=== PATIENT | female | born 1985 | race Caucasian/White ===

== ENCOUNTER → 2021-10-07 09:41 | Outpatient (BNVA) | payer MEDICAID, SELFPAY | PROVIDERS: Visit Provider Family Medicine | DX: J02.9 Acute pharyngitis, unspecified (principal) | CPT/HCPCS: 87071; 87880 ==

== ENCOUNTER → 2022-08-23 08:31 | Outpatient (BNVA) | payer MEDICAID, SELFPAY | PROVIDERS: PCP Family Medicine; Visit Provider Family Medicine | DX: Z34.90 Encounter for supervision of normal pregnancy, unspecified, unspecified trimester (principal) | CPT/HCPCS: 80307; 81000; 81025; 84144; 84443; 85025; 86592; 86762; 86803; 86850; 86900; 87086; 87340; 87491; 87591; 87624; 87806 ==

== ENCOUNTER 2022-09-01 14:17 | Outpatient (CLI) | payer MEDICAID, SELFPAY ==
--- NOTE | 2022-09-01 14:30 | US_ITS ---
WS: [id number] EARLY OBSTETRICAL ULTRASOUND (<14 WEEKS). HISTORY: Dating US COMPARISON: None available. Single intrauterine gestational sac is identified. Cardiac activity at 71 BPM. [place]-rump length hafsa ures 0.4 cm which corresponds to a gestation of 6w0d. Normal-appearing yolk sac and amnion demonstrat ed. No subchorionic hemorrhage. No free fluid. Normal size ovaries with no mass. RIGHT ovary contains a corpus luteal of . US/US OB <=14 wk fetus w transvag IMPRESSION: 1. Single intrauterine gestation of 6 weeks 0 days with an EDC of 04/27/2023. 2. Low level cardiac activity. Appropriate for the very early gestational age.
== END 2022-09-01 14:18 | disposition home or self-care (01) ==
PROVIDERS: PCP Family Medicine; Visit Provider Family Medicine
DX: Z34.91 Encounter for supervision of normal pregnancy, unspecified, first trimester (principal); Z36.87 Encounter for antenatal screening for uncertain dates; Z3A.01 Less than 8 weeks gestation of pregnancy
CPT/HCPCS: 76801; 76817

== ENCOUNTER 2022-09-15 14:28 | Day surgery (SDC) | payer MEDICAID, SELFPAY ==
[2022-09-15] VITALS (16 sets, daily range): BP systolic 92–120; BP diastolic 56–79; PULSE 56–103; RESP 14–20; TEMP 36.4–36.7; O2SAT 97–100; BMI 23.8
--- NOTE | 2022-09-15 15:06 | W.ED.FEMALGU ---
Documented by User: ROSEANNA Pettit 09/15/22 16:59 HPI - Female Genitourinary General: Chief complaint: Vaginal Bleeding Stated complaint: possible miscarrige Time Seen by Provider: 09/15/22 14:57 Source: patient Mode of arrival: ambulatory Limitations: no limitations History of Present Illness: Patient is a 37-year-old female approximately 8 weeks gestation here for complaints of vaginal bleeding/miscarriage. Patient states around 6 weeks she had an ultrasound performed (OB Dr. Robbins) which showed a gestational sac that measured small with abnormal cardiac activity. She presumed following this ultrasound she would miscarry. She states shortly after the ultrasound she did begin bleeding (bleeding started about 9 days ago) and states bleeding has continued and actually worsened over the past 1 to 2 days. She states today she is going through approximately a pad an hour. She states yesterday the pelvic cramping was unbearable. MD elicited complaint: vaginal bleeding, pelvic pain and possible miscarriage Pertinent past history: prior miscarriages Onset (ago): day(s) Severity: moderate Quality of pain: cramping Consistency: constant Vaginal discharge: none Vaginal bleeding: heavy, POC/tissue and # pads per hour (1) Exacerbating factors: none Relieving factors: none Associated symptoms: Reports no associated symptoms; Deny abdominal pain or headache(s) Treatment prior to arrival: none Sexual activity: Yes Patient : Yes Review of Systems Const: Denies: fever(s), chills, body aches, fatigue or malaise Card: Denies: chest pain Resp: Denies: dyspnea GI: Denies: abdominal pain : Reports: vaginal bleeding and pelvic pain; Denies: flank pain or dysuria Musc: Denies: back pain Neuro: Denies: headache(s) or dizziness [facility] ED PFSH: Surgical History Previous section x 3 Social History Smoking and tobacco status: former smoker Alcohol intake: never Substance/Drug Use: never Marital 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 Physical Exam Const: COMMON NORMALS: no acute distress, average body habitus, patient oriented x3, no limitations, healthy appearing, alert and well nourished GENERAL APPEARANCE: cooperative ORIENTATION/CONSCIOUSNESS: Yes awake, Yes oriented to person, Yes oriented to place and Yes oriented to time GI: COMMON NORMALS: Normal to inspection, nondistended, normoactive bowel sounds present, Soft to palpation, No hepatosplenomegaly present and no masses INSPECTION: Yes normal to inspection AUSCULTATION: Yes normoactive bowel sounds PALPATION: Yes Soft to palpation, Yes Tenderness to palpation present (GI) (lower abdomen/pelvis), No Guarding due to palpation present (GI), No Rigid due to palpation and Yes No hepatosplenomegaly present : COMMON NORMALS: Yes no CVA tenderness BLADDER/KIDNEY EXAM: Yes no CVA tenderness SPECULUM EXAM - VAGINA: Yes tissue present in vagina (removed) SPECULUM EXAM - CERVIX: Yes Cervical os open and Yes Tissue present in the cervical os (removed) OB/EXTERNAL & SPECULUM: tissue present in vagina (removed) and Cervical os open Back/Pelvis: COMMON NORMALS: no CVA tenderness Neuro: COMMON NORMALS: patient oriented x3 SENSORIUM/ORIENTATION: Yes alert, Yes oriented to person, Yes oriented to place and Yes oriented to time Course Consultations: Consultation #1: Dr. Robbins-recommended we continue to monitor patient-if bleeding has slowed then he will see patient tomorrow in office for re-evaluation; if she continues to bleed heavily then recommends contacting OB for evaluation for D&C Vital Signs: Vital signs: Vital Signs Temperature 98.0 F 09/15/22 22:12 Pulse Rate 65 09/15/22 22:12 Respiratory Rate 18 09/15/22 22:12 Blood Pressure 109/74 09/15/22 22:12 Pulse Oximetry 100 09/15/22 22:12 Oxygen Delivery Me thod Room Air 09/15/22 22:12 MDM - Female Lab Data 09/15/22 19:30 09/15/22 15:18 Radiology Impressions Ultrasound 09/15/22 16:31 IMPRESSION: 1. Negative for intrauterine , patient remains at risk for ectopic , close clinical correlation, serial beta HCG levels and follow-up ultrasound as clinically indicated advised. 2. Small amount of complex fluid in the uterine cavity, may reflect retained products of conception, close clinical correlation, serial beta HCG levels and follow-up ultrasound as clinically indicated advised. Abdomen/Pelvis CT 09/15/22 19:01 IMPRESSION: 1. Fluid in the uterine cavity with diffuse endometrial thickening, may be related to history of miscarriage. Negative for adnexal mass or abnormality to suggest the presence of an ectopic . 2. Mildly prominent fluid in the small bowel without dilation may reflect an enteritis. Laboratory Results WBC 9.2 10^3/uL (4.0-10.0) 09/15/22 19:30 RBC 3.58 10^6/uL (4.1-5.3) L 09/15/22 19: Hgb 11.1 g/dL (11.5-15.3) L 09/15/22 19: Hct 33.3 % (37.0-47.0) L 09/15/22: MCV 93.0 fl (81-99) 09/15/22: MCH 31.0 pg (28.0-34.0) 09/15/22: MCHC 33.3 g/dL (30.0-36.0) 09/15/22: RDW 11.4 % (12.1-15.1) L 09/15/22: Plt Count 221 10^3/cmm (130-400) 09/15/22: MPV 10.6 fL (7.4-10.4) H 09/15/22 19: Neut % (Auto) 79.9 % 09/15/22: Lymph % (Auto) 14.4 % 09/15/22: [place] % (Auto) 4.9 % 09/15/22: Eos % (Auto) 0.1 % 09/15/22: Baso % (Auto) 0.3 % 09/15/22: Neut # (Auto) 7.34 10^3/uL (1.8-7.7) 09/15/22 19: Lymph # (Auto) 1.3 10^3/uL (0.8-4.8) 09/15/22: [place] # (Auto) 0.5 10^3/uL (0.2-0.9) 09/15/22 19:30 Eos # (Auto) 0.0 10^3/uL (0.0-0.8) 09/15/22: Baso # (Auto) 0.0 10^3/uL (0.0-0.1) 09/15/22 19:30 Nucleated RBC % (auto) 0 % 09/15/22 19:30 Nucleated RBCs # 0.0 /100WBC 09/15/22 19:30 Sodium 135 mmol/L (136-145) L 09/15/22 15:18 Potassium 4.1 mmol/L (3.5-5.1) 09/15/22 15:18 Chloride 103 mmol/L (98-107) 09/15/22 15:18 Carbon Dioxide 20 mmol/L (22-29) L 09/15/22 15:18 Anion Gap 16.1 (5-19) 09/15/22 15:18 BUN 10 mg/dL (6-20) 09/15/22 15:18 Creatinine 0.5 mg/dL (0.5-0.9) 09/15/22 15:18 GFR Calculation 138.8 mL/min (90-130) H 09/15/22 15:18 Glucose 89 mg/dL (65-115) 09/15/22 15:18 Calculated Osmolality 279 mOsm/kg (285-295) L 09/15/22 15:18 Calcium 9.3 mg/dL (8.5-10.5) 09/15/22 15:18 Total Bilirubin 0.3 mg/dL (0.15-1.2) 09/15/22 15:18 AST 15 U/L (0-32) 09/15/22 15:18 ALT 8 U/L (0-33) 09/15/22 15:18 Alkaline Phosphatase 56 U/L (35-105) 09/15/22 15:18 Total Protein 7.7 g/dL (6.6-8.7) 09/15/22 15:18 Albumin 4.3 g/dL (3.5-5.2) 09/15/22 15:18 Globulin 3.4 g/dL (1.3-4.6) 09/15/22 15:18 Ser , Semi-Qnt 9392.00 mIU/mL 09/15/22 15:18 Blood Type O Positive 09/15/22 15:18 Rho(D) Type Positive 09/15/22 15:18 Discharge Plan Discharge Clinical Impression: Incomplete Condition: Stable Sign Out Sign Out Data: Patient Sign Out occurred on 09/15/22 at 17:45. Patient's care was discussed, and care was transferred from to Kg Holm. Coding Level of Care Code ED Carpet Measurer for Renetta Fwd Documented by User: LEROY Cordova 09/15/22 22:27 HPI - Female Genitourinary General: Chief complaint: Vaginal Bleeding Stated complaint: possible miscarrige Time Seen by Provider: 09/15/22 14:57 PFSH ED PFSH: Surgical History Previous section x 3 Social History Smoking and tobacco status: former smoker Alcohol intake: never Substance/Drug Use: never Marital 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 Course ED course: 1735, patient had some increased passage of clots after ultrasound and was concerned. Contacted Dr. Mann he recommended tranxemic acid, monitor and follow-up in the office for repeat hCG levels until 0. Since there is no product left in the uterus he did not recommend D&C at this time. 1835, I attempted evaluation of cervical os patient is very retroverted and I was unable to get good visualization, I did remove 2 large clots. Patient's blood pressure dropped to 95 systolic I discussed this with Dr. Palafox who recommended we talk with Dr. Mann again. I contacted Dr. Mann and instructed him on the new exam and reviewed the ultrasound again with him. I requested him to come over and evaluate the patient he agreed with plan. 2010, Dr. Mann reevaluated patient after CT scan and informed me that he was going to take her for a D&C due to persistent bleeding. Vital Signs: Vital signs: Vital Signs Temperature 98.0 F 09/15/22 22:12 Pulse Rate 65 09/15/22 22:12 Respiratory Rate 18 09/15/22 22:12 Blood Pressure 109/74 09/15/22 22:12 Pulse Oximetry 100 09/15/22 22:12 Oxygen Delivery Me thod Room Air 09/15/22 22:12 MDM - Female Medical Decision Making Patient came in today due to increasing bleeding greater than 1 pad an hour starting about 11:00. I received this patient from Puja Haynes. Pelvic exam by Puja Haynes reported to me was clots red blood was noted in the vaginal vault but nothing was noted in the cervical os. After ultrasound patient had an increase in clots and bleeding. Patient was given 1 g of TXA IV for bleeding. Dr. Mann was consulted and at the time recommended home with oral TXA and follow-up in the office. Patient had worsening pain and became hypotensive with a blood pressure of 95 systolic. Patient was given some ketorolac and fentanyl which improved her pain. Dr. Mann was notified of abnormality and agreed to come over to evaluate patient further. Differential diagnoses included incomplete , missed , abnormal uterine bleeding. Ultrasound noted no IUP and complex fluid in the uterus suggesting either bleeding or retained product of conception. Original CBC noted hemoglobin 12.4, CMP was unremarkable. Patient's blood type was O+. Second CBC noted a hemoglobin 11.1. Dr. Mann ordered a CT scan they reevaluated patient and decided to take patient to surgery for D&C due to patient's continued bleeding. Lab Data 09/15/22 19:30 09/15/22 15:18 Radiology Impressions Ultrasound 09/15/22 16:31 IMPRESSION: 1. Negative for intrauterine , patient remains at risk for ectopic , close clinical correlation, serial beta HCG levels and follow-up ultrasound as clinically indicated advised. 2. Small amount of complex fluid in the uterine cavity, may reflect retained products of conception, close clinical correlation, serial beta HCG levels and follow-up ultrasound as clinically indicated advised. Abdomen/Pelvis CT 09/15/22 19:01 IMPRESSION: 1. Fluid in the uterine cavity with diffuse endometrial thickening, may be related to history of miscarriage. Negative for adnexal mass or abnormality to suggest the presence of an ectopic . 2. Mildly prominent fluid in the small bowel without dilation may reflect an enteritis. Laboratory Results WBC 9.2 10^3/uL (4.0-10.0) 09/15/22 19:30 RBC 3.58 10^6/uL (4.1-5.3) L 09/15/22 19: Hgb 11.1 g/dL (11.5-15.3) L 09/15/22 19: Hct 33.3 % (37.0-47.0) L 09/15/22 19: MCV 93.0 fl (81-99) 09/15/22 19: MCH 31.0 pg (28.0-34.0) 09/15/22: MCHC 33.3 g/dL (30.0-36.0) 09/15/22 19: RDW 11.4 % (12.1-15.1) L 09/15/22: Plt Count 221 10^3/cmm (130-400) 09/15/22: MPV 10.6 fL (7.4-10.4) H 09/15/22 19: Neut % (Auto) 79.9 % 09/15/22 19: Lymph % (Auto) 14.4 % 09/15/22 19: [place] % (Auto) 4.9 % 09/15/22 19: Eos % (Auto) 0.1 % 09/15/22: Baso % (Auto) 0.3 % 09/15/22: Neut # (Auto) 7.34 10^3/uL (1.8-7.7) 09/15/22: Lymph # (Auto) 1.3 10^3/uL (0.8-4.8) 09/15/22: [place] # (Auto) 0.5 10^3/uL (0.2-0.9) 09/15/22 19: Eos # (Auto) 0.0 10^3/uL (0.0-0.8) 09/15/22: Baso # (Auto) 0.0 10^3/uL (0.0-0.1) 09/15/22: Nucleated RBC % (auto) 0 % 09/15/22: Nucleated RBCs # 0.0 /100WBC 09/15/22 19: Sodium 135 mmol/L (136-145) L 09/15/22 15:18 Potassium 4.1 mmol/L (3.5-5.1) 09/15/22 15:18 Chloride 103 mmol/L (98-107) 09/15/22 15:18 Carbon Dioxide 20 mmol/L (22-29) L 09/15/22 15:18 Anion Gap 16.1 (5-19) 09/15/22 15:18 BUN 10 mg/dL (6-20) 09/15/22 15:18 Creatinine 0.5 mg/dL (0.5-0.9) 09/15/22 15:18 GFR Calculation 138.8 mL/min (90-130) H 09/15/22 15:18 Glucose 89 mg/dL (65-115) 09/15/22 15:18 Calculated Osmolality 279 mOsm/kg (285-295) L 09/15/22 15:18 Calcium 9.3 mg/dL (8.5-10.5) 09/15/22 15:18 Total Bilirubin 0.3 mg/dL (0.15-1.2) 09/15/22 15:18 AST 15 U/L (0-32) 09/15/22 15:18 ALT 8 U/L (0-33) 09/15/22 15:18 Alkaline Phosphatase 56 U/L (35-105) 09/15/22 15:18 Total Protein 7.7 g/dL (6.6-8.7) 09/15/22 15:18 Albumin 4.3 g/dL (3.5-5.2) 09/15/22 15:18 Globulin 3.4 g/dL (1.3-4.6) 09/15/22 15:18 Ser , Semi-Qnt 9392.00 mIU/mL 09/15/22 15:18 Blood Type O Positive 09/15/22 15:18 Rho(D) Type Positive 09/15/22 15:18 Discharge Plan Discharge Clinical Impression: Incomplete Condition: Stable Sign Out Sign Out Data: Patient Sign Out occurred on 09/15/22 at 17:45. Patient's care was discussed, and care was transferred from to Kg Holm. Coding Level of Care Code ED Carpet Measurer for Renetta Falcon
[2022-09-15 15:40] LABS: Basophils % 0.4 %; Eosinophils % 0.4 %; Hematocrit 37.6 % (37.0-47.0); Hemoglobin 12.4 g/dL (11.5-15.3); Lymphocytes # 1.3 10^3/uL (0.8-4.8); Lymphocytes % 15.7 %; Mean Corpuscular Hemoglobin 31.4 pg (28.0-34.0); Mean Corpuscular Volume 95.2 fl (81-99); Mean Platelet Volume 10.8 fL (7.4-10.4); Monocytes # 0.4 10^3/uL (0.2-0.9); Monocytes % 5.4 %; Neutrophils # 6.33 10^3/uL (1.8-7.7); Neutrophils % 77.9 %; Nucleated Red Blood Cells % 0 %; Platelet Count 213 10^3/cmm (130-400); Red Blood Count 3.95 10^6/uL (4.1-5.3); Red Cell Distribution Width 11.3 % (12.1-15.1); White Blood Count 8.1 10^3/uL (4.0-10.0)
[2022-09-15 15:55] LABS: Alanine Aminotransferase 8 U/L (0-33); Albumin Level 4.3 g/dL (3.5-5.2); Alkaline Phosphatase 56 U/L (35-105); Aspartate Amino Transferase 15 U/L (0-32); Blood Urea Nitrogen 10 mg/dL (6-20); Calcium 9.3 mg/dL (8.5-10.5); Carbon Dioxide 20 mmol/L (22-29); Chloride 103 mmol/L (98-107); Globulin 3.4 g/dL (1.3-4.6); Glomerular Filtration Rate 138.8 mL/min (90-130); Glucose 89 mg/dL (65-115); Osmolality Calculated 279 mOsm/kg (285-295); Sodium 135 mmol/L (136-145); Total Bilirubin 0.3 mg/dL (0.15-1.2); Total Protein 7.7 g/dL (6.6-8.7)
[2022-09-15 15:57] LABS: Anion Gap 16.1 (5-19); Potassium 4.1 mmol/L (3.5-5.1)
--- NOTE | 2022-09-15 16:31 | USR_ITS ---
PROCEDURE INFORMATION: Exam: US First Trimester, Transabdominal and US , Transvaginal Exam date and time: 09/15/2022 4:46 PM Age: 37 years old Clinical indication: Lmp or gestational age (in weeks): 0; Antepartum complications; Bleeding; Additional info: Bleeding/miscarriage TECHNIQUE: Imaging protocol: Real-time transabdominal obstetrical ultrasound of the maternal pelvis and a first trimester , less than 14 weeks 0 days, with image documentation. Transvaginal imaging was used for better evaluation of the fetus, adnexa, and/or cervix. COMPARISON: US OB <=14 wk fetus w transvag 09/01/2022 2:49 PM FINDINGS: Gestation: Negative for intrauterine , patient remains at risk for ectopic , close clinical correlation, serial beta HCG levels and follow-up ultrasound as clinically indicated advised. MATERNAL: Uterus: Unremarkable. Cervix: Unremarkable. Right ovary/adnexa: Unremarkable ovary. Left ovary/adnexa: Unremarkable ovary. Intraperitoneal space: No intraperitoneal free fluid. Other findings: Small amount of complex fluid in the uterine cavity, may reflect retained products of conception, close clinical correlation, serial beta HCG levels and follow-up ultrasound as clinically indicated advised. US/US OB <= 14 weeks fetus [id number] IMPRESSION: 1. Negative for intrauterine , patient remains at risk for ectopic , close clinical correlation, serial beta HCG levels and follow-up ultrasound as clinically indicated advised. 2. Small amount of complex fluid in the uterine cavity, may reflect retained products of conception, close clinical correlation, serial beta HCG levels and follow-up ultrasound as clinically indicated advised.
[2022-09-15] MEDS: sodium chloride 0.9% 1,000 ML 999 ML IV (17:55)
[2022-09-15] MEDS: ketorolac 30 mg/mL INJ 15 MG IVP (18:00)
[2022-09-15] MEDS: fentaNYL 50 mcg/mL INJ 2mL IVP (18:40)
--- NOTE | 2022-09-15 19:01 | CTR_ITS ---
PROCEDURE INFORMATION: Exam: CT Abdomen And Pelvis With Contrast Exam date and time: 09/15/2022 7:12 PM Age: 37 years old Clinical indication: Abdominal pain; Localized; Lower; Prior surgery; Surgery date: 6+ months; Surgery type: C section; Additional info: Miscarraige, pelvic pain, R/O ectopic TECHNIQUE: Imaging protocol: Computed tomography of the abdomen and pelvis with contrast. Radiation optimization: All CT scans at this facility use at least one of these dose optimization techniques: automated exposure control; mA and/or kV adjustment per patient size (includes targeted exams where dose is matched to clinical indication); or iterative reconstruction. Contrast material: OMNI 350; Contrast volume: 100 ml; Contrast route: INTRAVENOUS (IV); REPORTING DATA: Count of CT and Cardiac NM exams in prior 12 months: This patient has received 0 known CTs and 0 known cardiac nuclear medicine studies in the 12 months prior to the current study. COMPARISON: US OB <= 14 weeks fetus [id number] 09/15/2022 4:46 PM RADIATION DOSE METRICS: Total DLP (mGy-cm): 577 FINDINGS: Liver: Normal. No mass. Gallbladder and bile ducts: Normal. No calcified stones. No ductal dilation. Pancreas: Normal. No ductal dilation. Spleen: Normal. No splenomegaly. Adrenal glands: Normal. No mass. Kidneys and ureters: Normal. No hydronephrosis. Stomach and bowel: Mildly prominent fluid in the small bowel without dilation may reflect an enteritis. Appendix: No evidence of appendicitis. Intraperitoneal space: Unremarkable. No free air. No significant fluid collection. Vasculature: Unremarkable. No abdominal aortic aneurysm. Lymph nodes: Unremarkable. No enlarged lymph nodes. Urinary bladder: Unremarkable as visualized. Reproductive: Fluid in the uterine cavity with diffuse endometrial thickening, may be related to history of miscarriage. Bones/joints: Unremarkable. No acute fracture. Soft tissues: Unremarkable. CT/CT abdomen pelvis w con* [id number] IMPRESSION: 1. Fluid in the uterine cavity with diffuse endometrial thickening, may be related to history of miscarriage. Negative for adnexal mass or abnormality to suggest the presence of an ectopic . 2. Mildly prominent fluid in the small bowel without dilation may reflect an enteritis.
[2022-09-15] MEDS: iohexol 350 mg/mL 500 mL Btl (per mL) IV (19:19)
[2022-09-15] MEDS: fentaNYL 50 mcg/mL INJ 2mL 25 MCG IVP (19:50)
[2022-09-15 19:52] LABS: Basophils % 0.3 %; Eosinophils % 0.1 %; Hematocrit 33.3 % (37.0-47.0); Hemoglobin 11.1 g/dL (11.5-15.3); Lymphocytes # 1.3 10^3/uL (0.8-4.8); Lymphocytes % 14.4 %; Mean Corpuscular HGB Conc 33.3 g/dL (30.0-36.0); Mean Platelet Volume 10.6 fL (7.4-10.4); Monocytes # 0.5 10^3/uL (0.2-0.9); Monocytes % 4.9 %; Neutrophils # 7.34 10^3/uL (1.8-7.7); Neutrophils % 79.9 %; Nucleated Red Blood Cells % 0 %; Platelet Count 221 10^3/cmm (130-400); Red Blood Count 3.58 10^6/uL (4.1-5.3); Red Cell Distribution Width 11.4 % (12.1-15.1); White Blood Count 9.2 10^3/uL (4.0-10.0)
--- NOTE | 2022-09-15 20:04 | P.CONIM_ITS ---
Providers/Reason for Consult Consulting Physican/Specialty*: ER Reason for Consult*: Incomplete Primary Care Provider: Miky Robbins MD WOOLING MACHINE OPERATOR Consult HPI History of Present Illness Megan Burgos is a 37 year old female with EGA at 8 weeks with pelvic pain, vaginal bleeding, with no IUP. Present Details : 5 Para: 3 Review of Systems General: Reports: 10 or more systems reviewed and unremarkable except in HPI and below Const: Denies: fever(s), chills, body aches, fatigue or malaise Card: Denies: chest pain Resp: Denies: dyspnea GI: Denies: abdominal pain : Reports: vaginal bleeding and pelvic pain; Denies: flank pain or dysuria Musc: Denies: back pain Neuro: Denies: headache(s) or dizziness Medications/Allergies Home Medications Medication Instructions Recorded Confirmed Last Taken Type prenat.vits,florentin,zze-[id number] 1 tab PO DAILY 08/23/22 08/23/22 Unknown History tranexamic acid 650 mg tablet 650 mg PO TID #15 tabs 09/15/22 Unknown Rx (Lysteda) Allergies Allergy/AdvReac Type Severity Reaction Status Date / Time No Known Allergies Allergy Unverified 10/07/21 09:13 PFSH WOOLING MACHINE OPERATOR PFSH: Surgical History Previous section x 3 Social History Smoking and tobacco status: former smoker Alcohol intake: never Substance/Drug Use: never Marital 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 Vitals/I&O/Wt Last Vital Signs Temp 97.6 F 09/15/22 14:35 Pulse 56 L 09/15/22 19:44 Resp 20 H 09/15/22 19:50 BP 117/76 09/15/22 19:44 Pulse Ox 99 09/15/22 19:50 O2 Del Method Room Air 09/15/22 19:44 09/15/22 09/15/22 09/15/22 06:59 14:59 22:59 Intake Total 110 / 110 Balance 110 / 110 Weight last 48 hrs Weight 75.296 kg Physical Exam Const: COMMON NORMALS: no acute distress, patient oriented x3, alert and well nourished GENERAL APPEARANCE: well kempt HENMT: COMMON NORMALS: normocephalic and atraumatic HEAD & SCALP: normocephalic and atraumatic Neck/C-Spine: COMMON NORMALS: full ROM and Thyroid normal THYROID: Thyroid normal Lymph: LYMPHATIC: no lymphadenopathy noted Chest: CHEST: Yes Symmetrical chest wall rise Resp: COMMON NORMALS: normal respiratory effort Cardio: COMMON NORMALS: regular rate and regular rhythm RATE: regular rate RHYTHM: regular rhythm GI: COMMON NORMALS: Soft to palpation INSPECTION: Yes normal to inspection PALPATION: Yes Soft to palpation, No Tenderness to palpation present (GI), No Guarding due to palpation present (GI) and No Rebound tenderness present PERCUSSION: normal to percussion : COMMON NORMALS: No no CVA tenderness and Yes normal bimanual exam BLADDER/KIDNEY EXAM: No no CVA tenderness EXTERNAL FEMALE EXAM: Yes normal appearance of the urethra SPECULUM EXAM - VAGINA: No laceration, No lesion, Yes vaginal bleeding Amount: large/heavy and with clots, No tenderness and No Vaginal discharge present SPECULUM EXAM - CERVIX: Yes Cervical os open, Yes Cervical bleeding and Yes Cervical tenderness present BIMANUAL EXAM - VAGINA & UTERUS: Yes normal bimanual exam, Yes normal palpation, Yes normal palpation, No cervical motion tenderness, Yes Cervical tenderness present, Yes uterine shape normal, Yes Uterine tenderness bilaterally and Yes enlarged BIMANUAL EXAM - ADNEXA, OTHER: Yes normal adnexae, No tender and No Adnexal mass present OB/EXTERNAL & SPECULUM: Cervical os open and vaginal bleeding Back/Pelvis: COMMON NORMALS: negative for no CVA tenderness LUMBAR SPINE/LOWER BACK: Yes normal to inspection and No pain with ROM PELVIS: Yes no pain with anterior-posterior compression, Yes no pain with lateral compression and No tenderness over symphysis pubis Extremity: GENERAL: Yes normal exam except as noted, No calf tenderness and No cyanosis Neuro: COMMON NORMALS: patient oriented x3 SENSORIUM/ORIENTATION: Yes alert SPEECH: speech normal Psych: COMMON NORMALS: mental status grossly normal, Normal thought process present, cooperative, normal affect and speech normal APPEARANCE: Yes grossly normal and Yes well kempt ATTITUDE: Yes calm ACTIVITY/MOTOR BEHAVIOR: Yes appropriate eye contact SPEECH: Yes normal speech MOOD & AFFECT: Yes euthymic mood THOUGHT PROCESS: Normal thought process present ATTENTION/CONCENTRATION: Yes attention grossly intact Skin: COMMON NORMALS: no rashes or lesions noted GENERAL SKIN EXAM: no rashes or lesions noted Data 09/15/22 19:30 09/15/22 15:18 A&P Assessment and plan (1) Incomplete : Mrs. Guy 37 y/o female with approximate LMP 07/07/22, who was previously diagnose with an intrauterine at 8 weeks today base on a transvaginal US performed on 09/01/2022 with an estimated KASEY of 04/27/2023. Came to ER referring vaginal bleeding since Tuesday associated with passing some tissue, complaning of vaginal bleeding and pelvic pain worsen today. A trasnvaginal US show small amount of complex fluid in lower uterus, adnexas wNL, but ectopic could not be ruled out. A ct scan was ordered and confirm no ectopic . The patient and her significant other where inform of findings. Upon examination poor visability of the cervix due to bleeding and a suction dialtion and curettage recommended. She was counseled regarding procedure, all treatment modalities, risk and complications. (2) First trimester bleeding: Coding Level of Care Code Acute Code for Chg Fwd Diagnoses Incomplete O03.4 First trimester bleeding O20.9
[2022-09-15] MEDS: sodium chloride 0.9% 1,000 ML 30 ML IV (22:39)
--- NOTE | 2022-09-15 22:49 | ANES.PREANE2 ---
Pre-Anesthetic Assessment Height/Weight: Height 1.78 m Weight 75.296 kg Temp Pulse Resp BP Pulse Ox O2 Del Method 98.0 F 65 18 109/74 100 Room Air 09/15/22 22:12 09/15/22 22:12 09/15/22 22:12 09/15/22 22:12 09/15/22 22:12 09/15/22 22:12 Preop Diagnosis: spontanous AB Operation Date: 09/15/22 22:00 Proposed Procedures p Dilation And Curettage w/ Suction(Not Applicable) - King Mann MD Familial anesthetic complications: none Last intake: meal 1400 fluids 1900 Social No alcohol and No tobacco Exam alert, oriented x 3, clear to auscultation bilaterally and regular rate & rhythm Airway Submandibular: within normal limits Cervical ROM: within normal limits Mallampati: Class I Dentition: full Pulmonary None reported CV/HEM Anemia (missed AB) None reported Hepatic None reported GI None reported Metabolic None reported Musc/skel None reported Neuropsych None reported Anesthetic Plan ASA status: 1E Medications/Allergies Home Medications Medication Instructions Recorded Confirmed Last Taken Type prenat.vits,florentin,aha-fvqg-ozubu 1 tab PO DAILY 08/23/22 08/23/22 Unknown History tranexamic acid 650 mg tablet 650 mg PO TID #15 tabs 09/15/22 Unknown Rx (Lysteda) Allergies Allergy/AdvReac Type Severity Reaction Status Date / Time No Known Allergies Allergy Unverified 10/07/21 09:13 Current Medications Generic Name Dose Route Start Last Admin Trade Name Freq PRN Reason Stop Dose Admin Sodium Chloride 1,000 mls @ 30 mls/hr 09/15/22 18:45 09/15/22 22:39 Sodium Chloride 0.9% IV 30 mls/hr .Q24H ADI Administration PFSH Anesthesia Surgical History Previous section x 3 Social History Smoking and tobacco status: former smoker Alcohol intake: never Substance/Drug Use: never Marital 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 Female Reproductive History : 5 Data Anesthesia 09/15/22 19:30 09/15/22 15:18 Short CBC 09/15/22 09/15/22 Range/Units 15:18 19:30 WBC 8.1 9.2 (4.0-10.0) 10^3/uL Hgb 12.4 11.1 L (11.5-15.3) g/dL Hct 37.6 33.3 L (37.0-47.0) % MCV 95.2 93.0 (81-99) fl Plt Count 213 221 (130-400) 10^3/cmm Neut % (Auto) 77.9 79.9 % Neut # (Auto) 6.33 7.34 (1.8-7.7) 10^3/uL [facility] 09/15/22 15:18 Sodium 135 L Potassium 4.1 Chloride 103 Carbon Dioxide 20 L BUN 10 Creatinine 0.5 Glucose 89 Calcium 9.3 Liver Function 09/15/22 Range/Units 15:18 Total Bilirubin 0.3 (0.15-1.2) mg/dL AST 15 (0-32) U/L ALT 8 (0-33) U/L Alkaline Phosphatase 56 (35-105) U/L Albumin 4.3 (3.5-5.2) g/dL Blood Bank 09/15/22 15:18 Blood Type O Positive Rho(D) Type Positive Cardiac Studies: No Data to Display
[2022-09-15] MEDS: ceFAZolin 2,000 MG in sodium chloride 0.9% (plus) 50 ML 100 MG IV (23:04)
[2022-09-15] MEDS: lidocaine-epi 2% 20 mL INJ 12 ML INJECTION (23:24)
--- NOTE | 2022-09-15 23:28 | PM.OP ---
Operative Report Date of procedure: September 15, 2022 Pre-op diagnosis: Incomplete AB Post-op diagnosis: Same as above Procedure done: Suction and curettage Specimens removed/disposition: Products of conception Surgeon: King Mann MD Estimated blood loss (mL): 100 IV fluids (mL): 1,000 Complications: None Findings: Open cervix with products of conception Procedure: After informed consent, the patient was taken to the Operating Room where general anesthesia was administered. The patient was examined under anesthesia and found to have a normal uterus with normal adnexa. She was placed in the dorsal lithotomy position and prepped and draped in sterile fashion. A sterile open side speculum was placed in the patient?s vagina. A single-tooth tenaculum was then applied to the cervix. 2% lidocaine with epinephrine was infiltrated at the uterosacral ligaments. Product of conception noted at the open cervix os and it was emptied with ring forceps. Then the uterus was then gently sounded to 10 cm and a suction curette was advanced gently to the uterine fundus and the remainder of the product of conception was emptied. A sharp curettage was then performed until a gritty texture was noted. There was minimal bleeding noted and the tenaculum was removed with good hemostasis noted. The patient tolerated the procedure well. The patient was taken to the recovery area in stable condition. This documentation was created by [employer] fraud prevention analyst software (known for inherent fraud prevention analyst error). Every effort was made to assure accuracy of fraud prevention analyst. But this EMR does not have a spelling check with medical dictionary.
[2022-09-16 00:04] VITALS: BP 116/77; PULSE 98; RESP 17; TEMP 36.2; O2SAT 100
[2022-09-16 00:09] VITALS: BP 112/73; PULSE 89; RESP 18; TEMP 36.4; O2SAT 98
[2022-09-16 00:24] VITALS: BP 104/78; PULSE 100; RESP 18; O2SAT 98
[2022-09-16 00:29] VITALS: BP 108/64; PULSE 82; RESP 18; TEMP 36.2; O2SAT 100
== END 2022-09-16 00:31 | disposition home or self-care (01) ==
LOC: ER 18:05 → OR 20:28
PROVIDERS: Physician Assistant; Emergency Provider Nurse Practitioner Family; PCP Family Medicine; Visit Provider Obstetrics & Gynecology
PROC: (CPT 59812; principal; 2022-09-15 22:00)
DX: O03.4 Incomplete spontaneous abortion without complication (principal); Z87.891 Personal history of nicotine dependence
CPT/HCPCS: 59812; 36415; 74177; 76801; 80053; 84702; 85025; 86900; 88305; 99285; E0352; J0330; J0690; J1100; J1885; J2250; J2405; J2704; J3010; J7030; Q9967

== ENCOUNTER → 2022-11-12 09:21 | Outpatient (BNVA) | payer MEDICAID, SELFPAY | PROVIDERS: PCP Family Medicine; Visit Provider Clinical Nurse Specialist Adult Health | DX: R10.9 Unspecified abdominal pain (principal); R10.33 Periumbilical pain | CPT/HCPCS: 86003; 86008 ==

== ENCOUNTER → 2023-03-09 12:00 | Outpatient (BNVA) | payer MEDICAID, SELFPAY | PROVIDERS: PCP Family Medicine; Visit Provider Family Medicine | DX: Z34.80 Encounter for supervision of other normal pregnancy, unspecified trimester (principal) | CPT/HCPCS: 80307; 81000; 81025; 84144; 84443; 84702; 85025; 86592; 86762; 86803; 86850; 86900; 87086; 87340; 87491; 87591; 87806 ==

== ENCOUNTER 2023-03-17 06:56 | Outpatient (CLI) | payer MEDICAID, SELFPAY ==
--- NOTE | 2023-03-17 | US_ITS ---
WS: [id number] EARLY OBSTETRICAL ULTRASOUND (<14 WEEKS). HISTORY: Dating US - in next 1-2 weeks if possible COMPARISON: None available. Twin intrauterine gestational sacs are identified. Gestational sacs are in good position. Thick echog enic chorion completely surrounding each gestational sac. Twin peak sign is evident. Twin A: This is a gestational sac to the RIGHT and just slightly more inferior. Normal yolk sac and f etal pole. Heart rate 167 bpm. [place]-rump length of 1.6 cm corresponds to a gestation of 8 weeks and 0 days. EDC of 10/27/2023. Twin B: Gestational sac is to the LEFT of midline. No yolk sac and pole. Cardiac activity 153 b pm. [place]-rump length of 1.4 cm corresponds to a gestation of 7 weeks and 5 days. EDC of 10/29/2023. Cervix is closed. No free fluid. There is a tiny subchorionic hemorrhage adjacent to the inferior ges tational sac of twin A. Both ovaries are identified and normal. IMPRESSION: 1. Twin gestation, dichorionic diamniotic. 2. Twin A: 8 weeks 0 days with an EDC of 10/26/2013. 3. Twin B: 7 weeks 5 days with an EDC of 10/29/2023. 4. Normal cardiac activity within each gestation.
--- NOTE | 2023-03-17 07:15 | US_ITS ---
WS: [id number] EARLY OBSTETRICAL ULTRASOUND (<14 WEEKS). HISTORY: Dating US - in next 1-2 weeks if possible COMPARISON: None available. Twin intrauterine gestational sacs are identified. Gestational sacs are in good position. Thick echog enic chorion completely surrounding each gestational sac. Twin peak sign is evident. Twin A: This is a gestational sac to the RIGHT and just slightly more inferior. Normal yolk sac and f etal pole. Heart rate 167 bpm. [place]-rump length of 1.6 cm corresponds to a gestation of 8 weeks and 0 days. EDC of 10/27/2023. Twin B: Gestational sac is to the LEFT of midline. No yolk sac and pole. Cardiac activity 153 b pm. [place]-rump length of 1.4 cm corresponds to a gestation of 7 weeks and 5 days. EDC of 10/29/2023. Cervix is closed. No free fluid. There is a tiny subchorionic hemorrhage adjacent to the inferior ges tational sac of twin A. Both ovaries are identified and normal. IMPRESSION: 1. Twin gestation, dichorionic diamniotic. 2. Twin A: 8 weeks 0 days with an EDC of 10/26/2013. 3. Twin B: 7 weeks 5 days with an EDC of 10/29/2023. 4. Normal cardiac activity within each gestation.
== END 2023-03-17 06:57 | disposition home or self-care (01) ==
LOC: RAD 06:56
PROVIDERS: PCP Family Medicine; Visit Provider Family Medicine
DX: Z36.87 Encounter for antenatal screening for uncertain dates (principal); O30.041 Twin pregnancy, dichorionic/diamniotic, first trimester; Z3A.08 8 weeks gestation of pregnancy; Z3A.01 Less than 8 weeks gestation of pregnancy
CPT/HCPCS: 76801; 76802; 76817

== ENCOUNTER 2023-09-26 13:01 | Outpatient (CLI) | payer MEDICAID, SELFPAY ==
[2023-09-26 13:17] VITALS: BP 115/75; PULSE 104
[2023-09-26 13:20] VITALS: BMI 28.1
[2023-09-26 13:40] VITALS: RESP 16; TEMP 36.6; TEMP 36.7
== END 2023-09-26 13:40 ==
LOC: OPOB 13:07 → OBGYN 13:07
PROVIDERS: PCP Family Medicine; Visit Provider Family Medicine
DX: O30.099 Twin pregnancy, unable to determine number of placenta and number of amniotic sacs, unspecified trimester (principal); Z3A.00 Weeks of gestation of pregnancy not specified
CPT/HCPCS: 59025; 99211

== ENCOUNTER 2023-09-29 09:11 | Outpatient (CLI) | payer MEDICAID, SELFPAY ==
[2023-09-29 09:17] VITALS: BP 113/72; PULSE 83
== END 2023-09-29 10:00 | disposition home or self-care (01) ==
LOC: OPOB 09:12 → OBGYN 09:14
PROVIDERS: PCP Family Medicine; Visit Provider Family Medicine
DX: O30.099 Twin pregnancy, unable to determine number of placenta and number of amniotic sacs, unspecified trimester (principal); Z3A.00 Weeks of gestation of pregnancy not specified
CPT/HCPCS: 59025; 83986; 99211

== ENCOUNTER 2023-10-06 09:46 | Outpatient (CLI) | payer MEDICAID, SELFPAY ==
[2023-10-06 09:56] VITALS: BP 118/76; PULSE 82
[2023-10-06 09:59] VITALS: RESP 16
[2023-10-06 10:26] VITALS: BP 116/74; PULSE 85
[2023-10-06 10:30] VITALS: BP 116/74; PULSE 85
== END 2023-10-06 10:30 | disposition home or self-care (01) ==
LOC: OPOB 09:46 → OBGYN 09:47
PROVIDERS: PCP Family Medicine; Visit Provider Family Medicine
DX: O30.099 Twin pregnancy, unable to determine number of placenta and number of amniotic sacs, unspecified trimester (principal); Z3A.00 Weeks of gestation of pregnancy not specified
CPT/HCPCS: 59025; 99211

== ENCOUNTER 2023-10-07 19:51 | Outpatient (CLI) | payer MEDICAID, SELFPAY ==
[2023-10-07] VITALS (8 sets, daily range): BP systolic 111–127; BP diastolic 77–82; PULSE 78–100; RESP 16; TEMP 36.7; BMI 28.3
== END 2023-10-07 22:18 | disposition home or self-care (01) ==
LOC: OPOB 19:52 → OBGYN 19:56
PROVIDERS: PCP Family Medicine; Visit Provider Family Medicine
DX: O26.899 Other specified pregnancy related conditions, unspecified trimester (principal); Z3A.00 Weeks of gestation of pregnancy not specified; R10.9 Unspecified abdominal pain
CPT/HCPCS: 59025; 99211

== ENCOUNTER 2023-10-12 05:35 | Inpatient (IN) | payer MEDICAID, SELFPAY ==
[2023-10-12] VITALS (35 sets, daily range): BP systolic 100–127; BP diastolic 7–84; PULSE 60–92; RESP 16–17; TEMP 36.4–36.8; O2SAT 98–100; BMI 28.1
--- NOTE | 2023-10-12 05:26 | PM.OBGYHP ---
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 The patient has had a remarkably unremarkable twin . There have been no concerns. All the twins have had concordant growth throughout the . She has had 3 previous sections, and so we knew that she would have a repeat section. We have discussed the risks of including the risk of bleeding, infection, and damage to intra-abdominal organs. We have also discussed her history of previous C-sections and they understand that due to scar tissue that her risks are increased. She and her have no further questions and wished to proceed. Medications/Allergies Home Medications Medication Instructions Recorded Confirmed Last Taken Type prenat.vits,florentin,ger-fwqg-zjsti 1 tab PO DAILY 08/23/22 10/07/23 Unknown History Allergies Allergy/AdvReac Type Severity Reaction Status Date / Time No Known Allergies Allergy Unverified 10/01/22 13:05 PFSH OPERATING ENGINEER PFS: Surgical History (Updated 10/12/23 @ 05:30 by Dexter Smith MD) H/O dilation and curettage -2009 -09/15/2022 Previous section x 3 Family History Denies family history of Diabetes Heart disease Hyperlipidemia Hypertension Thyroid disease Stroke Social History Smoking and tobacco/nicotine status: never used tobacco/nicotine Alcohol intake: never Substance/Drug Use: never Current occupation: Stay at home mom History History History 6 Term 3 0 Miscarriages/Ectopic 2 Living Children 3 Past Pregnancies Del. Date GA/Weeks Outcome Route Wt Inf Gender Labor Lgth Comp. Anesthesia Location 04/11/09 9 spontaneous 03/18/11 41 live - full term 10 lb 15 oz Male [facility] - Dr Ortega 07/13/17 39 live - full term 6 lb Female [facility] 10/20/18 39 live - full term 7 lb [address] Driscoll [place] [facility] [place] Delivery Date: 04/11/09 Last Updated by: Miky Robbins MD Early miscarriage Delivery Date: 03/18/11 Last Updated by: Miky Robbins MD - elective Delivery Date: 07/13/17 Last Updated by: Miky Robbins MD Mass on baby's lung on US - ended up being nothing of concern. Delivery Date: 10/20/18 Last Updated by: Miky Robbins MD Subchorionic hematoma - Bled from 12-18 weeks. Care KASEY Calculator Estimated Delivery Date Method Current WG Current Estimate 10/26/23 LMP (Certain) 38w 0d Vitals/I&O/Wt Last Vital Signs Pulse 83 10/12/23 05:18 BP 119/75 10/12/23 05:18 O2 Del Method Room Air 10/07/23 22:12 Physical Exam Const: COMMON NORMALS: patient oriented x3 and alert HENMT: COMMON NORMALS: moist oral mucous membranes HEAD & SCALP: normal to inspection Chest: COMMONS NORMALS: normal inspection of the chest Resp: COMMON NORMALS: clear to auscultation bilaterally AUSCULTATION: clear to auscultation bilaterally Cardio: COMMON NORMALS: regular rate and regular rhythm RATE: regular rate RHYTHM: regular rhythm GI: INSPECTION: Yes normal to inspection and Yes other (Gravid) Extremity: COMMON NORMALS: normal to inspection GENERAL: Yes edema (Trace) Neuro: COMMON NORMALS: patient oriented x3, moves all extremities and no sensory deficits noted SENSORIUM/ORIENTATION: Yes alert Psych: COMMON NORMALS: mental status grossly normal Skin: COMMON NORMALS: no rashes or lesions noted GENERAL SKIN EXAM: no rashes or lesions noted Results Labs OB ([facility]): Obstetrics 07/13/23 Blood Type O Positive 03/09/23 Antibody Screen Negative 03/09/23 Hct 41.5 % (36-47) 03/09/23 Hgb 13.70 g/dL (11.27-16.99) 03/09/23 Rho(D) Type Rh positive 03/09/23 Plt Count 285 10^3/cmm (157-399) 03/09/23 Hep Bs Antigen Non-reactive (Nonreactive) 03/09/23 Hepatitis C Antibody Non-reactive (Nonreactive) 03/09/23 Rubella IgG Antibody 144.5 IU/mL (0.0-10.0) H 03/09/23 RPR Nonreactive (Nonreactive) 03/09/23 HIV 1&2 Ab & HIV 1 Ag Non-reactive (Non-Reactiv) 03/09/23 TSH 1.32 uIU/mL (0.27-4.20) 03/09/23 C.trachomatis RNA (TMA) Not detected (NOT DETECTED) 03/09/23 N.gonorrhoeae RNA (TMA) Not detected (NOT DETECTED) 03/09/23 Chlamydia/GC Comment See note 03/09/23 Progesterone 28.98 ng/mL 03/09/23 Ser , Semi-Qnt 25007.00 mIU/mL 03/09/23 HCG, Qual Positive (Negative) H 03/09/23 Urine Opiates Screen Negative ng/mL (Negative) 03/09/23 Ur Barbiturates Screen Negative ng/mL (Negative) 03/09/23 Ur Phencyclidine Scrn Negative ng/mL (Negative) 03/09/23 Ur Amphetamines Screen Negative ng/mL (Negative) 03/09/23 U Benzodiazepines Scrn Negative ng/mL (Negative) 03/09/23 Urine Cocaine Screen Negative ng/mL (Negative) 03/09/23 U Marijuana (THC) Screen Negative ng/mL (Negative) 03/09/23 Micro Urine Specimen 03/09/23 Pap Smear Interpret See note 08/23/22 A&P Assessment and plan (1) 38 weeks gestation of : We will proceed with section this morning as scheduled. (2) Twin in third trimester: Qualifiers: Multiple gestation type: dichorionic and diamniotic Qualified Code(s): O30.043 - Twin , dichorionic/diamniotic, third trimester (3) Previous section: Attestations Medical Necessity Statement*: I anticipate routine and post care. Coding Level of Care Code Acute Code for Chg Fwd Diagnoses 38 weeks gestation of Z3A.38 Dichorionic diamniotic twin in third trimester O30.043 Multiple gestation type: dichorionic and diamniotic Previous section Z98.891
[2023-10-12 05:55] LABS: Basophils % 0.4 %; Eosinophils # 0.1 10^3/uL (0.0-0.8); Eosinophils % 1.6 %; Hematocrit 35.6 % (36-47); Lymphocytes # 1.6 10^3/uL (0.8-4.8); Lymphocytes % 20.6 %; Mean Corpuscular HGB Conc 33.1 g/dL (30-55); Mean Corpuscular Hemoglobin 31.6 pg (27-33); Mean Corpuscular Volume 95.2 fl (85-98); Mean Platelet Volume 11.2 fL (7.4-10.4); Monocytes # 0.7 10^3/uL (0.2-0.9); Neutrophils # 5.15 10^3/uL (1.8-7.7); Neutrophils % 67.7 %; Nucleated Red Blood Cells % 0 %; Platelet Count 184 10^3/cmm (157-399); Red Blood Count 3.74 10^6/uL (3.85-5.65); White Blood Count 7.59 10^3/uL (3.29-11.43)
[2023-10-12] MEDS: lactated ringers 1,000 ML 999 ML IV (06:13)
[2023-10-12] MEDS: famotidine 20 mg/2 mL INJ IVP (06:34)
[2023-10-12] MEDS: metoclopramide 5 mg/mL SDV 2 mL 10 MG IVP (06:35)
[2023-10-12] MEDS: citric acid-sodium citrate 30 mL UDC PO (06:35)
--- NOTE | 2023-10-12 08:14 | P.OP_ITS ---
Operative Report Date of procedure: October 12, 2023 Pre-op diagnosis: 38-year-old para 3-0-2-3 with twins presenting for a repeat section Post-op diagnosis: Status post repeat low-transverse section ( Procedure done: Low-transverse section of twin Specimens removed/disposition: 1. Baby A vertex girl weight 5 pounds 10 ounces with Apgars of 9 and 10 2. Baby B vertex boy weight 5 pounds 9 ounces and Apgars of 8 and 9 3. Placenta for both baby A and baby B Pathology: None Surgeon: Dexter Smith MD Estimated blood loss (mL): 500 Complications: None Procedure: The patient was brought back to the operating room where she was prepped and draped in usual sterile fashion. Anesthesia was found to be adequate. A lower transverse skin incision was then made with a #10 blade. I then dissected down to the underlying subcutaneous tissue until arriving at the prerectal fascia. The fascia was then nicked with the scalpel bilaterally. The fascial incisions were then carried laterally with Jimenes scissors. Attention was then turned to the superior aspect of the incision which was grasped with kochers and tented up away from the underlying rectus abdominis muscles. The muscles were then dissected away from the fascia manually, and later with Jimenes scissors. A ttention was then turned to the inferior aspect of the incision, and the fascia was dissected away from the underlying muscle in similar fashion. The rectus abdominis muscles were then spread manually. The peritoneum was entered manually. Excellent visualization of the uterus was noted. A lower transverse uterine incision was then made with a #10 blade. Upon arriving at the intrauterine cavity, the uterine incision was then extended manually. Baby A was noted to be in vertex position. The baby was delivered without difficulty. After delivery of the head, the mouth and nose were suctioned at the site of the incision. There was no meconium. There was no nuchal cord. The baby was then completely delivered and placed on the abdomen. The cord was cut and clamped. The baby was then handed to Dr. Garcia for further care. The second amniotic sac was then ruptured. Baby B was noted to be in a vertex position. Baby had 2 nuchal cords and 2 body cords. The cords were tight enough that I had to cut the cord around his neck prior to delivery of the baby. The cord was cut and clamped and the baby was delivered without difficulty. The placentas were both removed intact. The uterus was externalized. The intrauterine cavity was cleansed of any remaining debris. The uterine incision was reapproximated in 2 layers. The first layer was performed with 0 Vicryl in a running locked stitch. The second layer was an imbricating stitch also using 0 Vicryl. The uterus was replaced into the abdomen. The peritoneum was then irrigated with warm saline. I reexamined the uterine incision and found it to be hemostatic. The rectus abdominis muscles were then reapproximated using 0 Vicryl in a running stitch. The fascia was then reapproximated using 0 Vicryl in running stitch. The subcutaneous tissue was then reapproximated using 0 Vicryl in a running stitch. The skin was reapproximated using letty. A sterile dressing was placed. All counts were correct x2. Both the mother and baby were in stable condition.
[2023-10-12] MEDS: dextrose 5%-lactated ringers 1,000 ML 125 ML IV (11:26)
[2023-10-12] MEDS: ketorolac 30 mg/mL INJ IVP ×2 (14:18→20:41)
[2023-10-12] MEDS: sodium chloride 0.9% 500 ML 999 ML IV (15:04)
[2023-10-12 23:08] LABS: Hematocrit 32.6 % (36-47); Mean Corpuscular HGB Conc 32.8 g/dL (30-55); Mean Corpuscular Hemoglobin 31.9 pg (27-33); Mean Corpuscular Volume 97.3 fl (85-98); Mean Platelet Volume 11.4 fL (7.4-10.4); Platelet Count 202 10^3/cmm (157-399); Red Blood Count 3.35 10^6/uL (3.85-5.65); White Blood Count 11.26 10^3/uL (3.29-11.43)
[2023-10-13 03:13] VITALS: BP 102/63; PULSE 73
--- NOTE | 2023-10-13 07:07 | P.PN_ITS ---
Subjective 2 Subjective: She is feeling the incisional pain a little bit more today but otherwise is doing well. She has passed flatus. Her bleeding has been pretty light. Vitals/I&O/Wt Last Vital Signs Temp 97.8 F 10/12/23 22:00 Pulse 73 10/13/23 03:13 Resp 16 10/12/23 22:00 BP 102/63 10/13/23 03:13 Pulse Ox 98 10/12/23 22:00 O2 Del Method Room Air 10/12/23 22:00 10/12/23 10/13/23 10/13/23 22:59 06:59 14:59 Output Total 870 / 1430 Balance -870 / -1430 Weight last 48 hrs Weight 88.904 kg Weight 180 g Weight 88.451 kg Physical Exam 2 Narrative: Alert and oriented, sitting up in bed holding one of the infant's. Heart regular rate and rhythm, lungs clear to auscultation bilaterally, abdomen is soft with appropriate postoperative tenderness, pressure bandage is clean dry and intact, extremities have trace edema no calf tenderness Urinary Catheter Management: Mercado: Cath Placed During This Visit: yes, but has since been removed by the nurse Reason for Continuing Indwelling Catheter: Decision to DC Catheter Urinary Catheter Date of Insertion: 10/12/23 Urinary Catheter Time of Insertion: 07:15 Date Urinary Catheter Removed: 10/12/23 Time Urinary Catheter Discontinued: 19:06 Data 10/12/23 20:47 A&P Assessment and plan (1) Status post repeat low transverse section: This is a 38-year-old -0-2-5 who had a repeat section for a Di Di twin gestation yesterday morning. Postoperatively she is doing well. Continue routine postoperative care. We discussed taking off the bandage today when she showers. Attestations 2 Medical Necessity Statement*: Routine postoperative and care Coding Level of Care Code Acute Code for Chg Fwd Diagnoses Status post repeat low transverse section Z98.891
[2023-10-13] MEDS: docusate sodium 100 mg Capsule PO ×2 (09:40→18:34)
[2023-10-13] MEDS: PRENATAL VIT NO.130/IRON/FOLIC 1 EACH TABLET PO (09:40)
[2023-10-13] MEDS: ferrous sulfate EC 325 mg Tablet PO ×2 (09:41→18:34)
[2023-10-13 09:44] VITALS: BP 115/57; PULSE 89
[2023-10-13 15:12] VITALS: BP 133/60; PULSE 93
[2023-10-13] MEDS: ibuprofen 800 mg tablet PO ×2 (15:17→20:40)
[2023-10-13] MEDS: lanolin oint 7 gm 1 APPLIC TOPICAL (18:34)
[2023-10-13 22:12] VITALS: BP 114/72; PULSE 87; TEMP 36.8
[2023-10-14 04:08] VITALS: BP 109/64; PULSE 74
[2023-10-14 07:45] VITALS: BP 118/72; PULSE 78
[2023-10-14] MEDS: ibuprofen 800 mg tablet PO (07:47)
[2023-10-14] MEDS: PRENATAL VIT NO.130/IRON/FOLIC 1 EACH TABLET PO (07:47)
[2023-10-14] MEDS: docusate sodium 100 mg Capsule PO (07:47)
[2023-10-14] MEDS: ferrous sulfate EC 325 mg Tablet PO (07:47)
--- NOTE | 2023-10-14 08:53 | PM.DCS ---
Discharge Providers Date of Admission: 10/12/23 05:35 Date of Discharge: October 14, 2023 Attending Provider at Admission: Dexter Smith MD Attending Provider at Discharge: Dexter Smith MD Primary Care Provider: Miky Robbins MD Diagnoses at Discharge Discharge Diagnosis (1) Status post repeat low transverse section: Status: Acute Reason for Visit Reason for Visit: Scheduled CS Hospital Course Hospital Course This is a 38-year-old G6 now P5 who was admitted for a scheduled repeat section with twin gestation. Mother has done well postoperatively. She is ambulating, tolerating a regular diet, has good pain control without any narcotic pain medication. Her vaginal bleeding is light. She has no complaints and is comfortable with discharge home. Physical Exam Narrative: Sitting in bed holding one of the infant's, heart regular rate and rhythm, lungs clear to auscultation bilaterally, abdomen is soft with minimal postoperative tenderness, incision is clean dry and intact with letty in place, extremities have only trace edema but no calf tenderness Urinary Catheter Management: Mercado: Cath Placed During This Visit: yes, but has since been removed by the nurse Reason for Continuing Indwelling Catheter: Decision to DC Catheter Urinary Catheter Date of Insertion: 10/12/23 Urinary Catheter Time of Insertion: 07:15 Date Urinary Catheter Removed: 10/12/23 Time Urinary Catheter Discontinued: 19:06 Discharge Data Studies Completed and Pending Laboratory Results WBC 11.26 10^3/uL (3.29-11.43) 10/12/23 20:47 RBC 3.35 10^6/uL (3.85-5.65) L 10/12/23 20:47 Hgb 10.70 g/dL (11.27-16.99) L 10/12/23 20:47 Hct 32.6 % (36-47) L 10/12/23 20:47 MCV 97.3 fl (85-98) 10/12/23 20:47 MCH 31.9 pg (27-33) 10/12/23 20:47 MCHC 32.8 g/dL (30-55) 10/12/23 20:47 RDW 14.0 % (12.1-15.1) 10/12/23 20:47 Plt Count 202 10^3/cmm (157-399) 10/12/23 20:47 MPV 11.4 fL (7.4-10.4) H 10/12/23 20:47 Neut % (Auto) 67.7 % 10/12/23 05:42 Lymph % (Auto) 20.6 % 10/12/23 05:42 [place] % (Auto) 9.0 % 10/12/23 05:42 Eos % (Auto) 1.6 % 10/12/23 05:42 Baso % (Auto) 0.4 % 10/12/23 05:42 Neut # (Auto) 5.15 10^3/uL (1.8-7.7) 10/12/23 05:42 Lymph # (Auto) 1.6 10^3/uL (0.8-4.8) 10/12/23 05:42 [place] # (Auto) 0.7 10^3/uL (0.2-0.9) 10/12/23 05:42 Eos # (Auto) 0.1 10^3/uL (0.0-0.8) 10/12/23 05:42 Baso # (Auto) 0.0 10^3/uL (0.0-0.1) 10/12/23 05:42 Nucleated RBC % (auto) 0 % 10/12/23 05:42 Nucleated RBCs # 0.0 /100WBC 10/12/23 05:42 Blood Type O Positive 10/12/23 05:21 Rho(D) Type Rh positive 10/12/23 05:21 Antibody Screen Negative 10/12/23 05:21 Vitals Last Vital Signs Temp 98.2 F 10/13/23 22:12 Pulse 78 10/14/23 07:45 Resp 16 10/12/23 22:00 BP 118/72 10/14/23 07:45 Pulse Ox 98 10/12/23 22:00 O2 Del Method Room Air 10/12/23 22:00 Discharge Plan Discharge Patient Disposition: Home Condition: Stable Prescriptions: New docusate sodium 100 mg Capsule 100 mg PO BID Qty: 60 0RF Continued prenat.vits,florentin,huo-jpdw-nzomw Tablet 1 tab PO DAILY Discharge Orders: Discharge Order (Routine); Ordered 10/14/23 Ordered By: Gauri Mendoza Referrals: Gauri Mendoza MD [Physician] - 4-7 days Dexter Smith MD [Physician] - 6 Weeks Discharge Diet: Usual diet Discharge Activity: Limit activity as instructed Patient Instructions: Depression (DC), Preeclampsia and Eclampsia After Delivery (GEN), Hemorrhage (DC), OB - Sarah/Kelly, OB Discharge Report, OB Food/Drug Interaction Guide, Opioid Safety, OB Home Care, Abnormal Bleeding Activity Restrictions/Additional Instructions: Nothing per vagina for 6 weeks. No lifting greater than 10 pounds for 2 weeks. Keep incision clean and dry. Discharge Attestations Time Spent in Discharge Care*: less than 30 min Quality Metrics Clinical Quality Measures [ No reported AMI, CVA or VTE this stay] Coding Level of Care Code Acute Code for Chg Fwd Diagnoses Status post repeat low transverse section Z98.891
[2023-10-14 09:55] VITALS: BP 125/73; PULSE 92; RESP 16; TEMP 36.4
[2023-10-14 13:00] VITALS: BP 125/73; PULSE 92; RESP 16; TEMP 36.4
--- NOTE | 2023-10-14 13:13 | PC.NURSE ---
THIS CLINICAL PROGRAM MANAGER REMOVED JIM AND TINTURE OF BENZION APPLIED WELL STERISTRIPS APPLIED.
== END 2023-10-14 12:50 | disposition home or self-care (01) | DRG 788 ==
LOC: OPOB 09:26 → OBGYN 09:26
PROVIDERS: Admitting Provider Family Medicine; PCP Family Medicine; Visit Provider Family Medicine
DX: O34.211 Maternal care for low transverse scar from previous cesarean delivery (principal); N85.8 Other specified noninflammatory disorders of uterus; Z37.2 Twins, both liveborn; O30.043 Twin pregnancy, dichorionic/diamniotic, third trimester; O69.81X2 Labor and delivery complicated by cord around neck, without compression, fetus 2; Z3A.38 38 weeks gestation of pregnancy
CPT/HCPCS: 36415; 51702; 59409; 85025; 85027; 86850; 86900; J1885; J2274; J2405; J2765; J3010; J3490; J7040; J7120; J7121